=== PATIENT | female | born 1985 | race Caucasian/White ===

== ENCOUNTER 2022-06-25 01:00 | Emergency (ER) | payer OTHER ==
[2022-06-25 01:16] VITALS: BP 140/72; PULSE 89; BMI 19.3
[2022-06-25 02:30] LABS: BASO % 0.4 % (0-2.0); EOS % 0.1 % (0-4.5); HEMATOCRIT 31.3 % (32.4-45.2); HEMOGLOBIN 10.2 GM/dL (10.7-15.3); MCH 28.4 pg (25.7-33.7); MCHC 32.5 g/dl (32.0-36.0); MEAN CELL VOLUME 87.3 fl (80-96); MEAN PLT VOLUME 8.1 fl (7.5-11.1); MONO % 5.7 % (3.8-10.2); NEUT % 81.8 % (42.8-82.8); PLATELET COUNT 328 10^3/uL (134-434); RBC 3.59 M/mm3 (3.60-5.2); WHITE BLOOD COUNT 14.9 K/mm3 (4.0-10.0)
[2022-06-25] MEDS ORDERED: ACETAMINOPHEN 1000 MG/100 ML BAG IVPB ONE (02:58)
[2022-06-25] MEDS ORDERED: ACETAMINOPHEN INJECTION 100 ML IVPB ONE (03:00)
[2022-06-25 03:06] LABS: CALCIUM 8.9 mg/dL (8.5-10.1)
[2022-06-25 03:07] LABS: ALBUMIN 3.2 g/dl (3.4-5.0)
[2022-06-25 03:10] LABS: CREATININE 0.5 mg/dL (0.55-1.3)
[2022-06-25 03:11] LABS: BILIRUBIN,TOTAL 0.2 mg/dL (0.2-1); TOT PROT 7.2 g/dl (6.4-8.2)
[2022-06-25] MEDS ORDERED: VANCOMYCIN 1 GM in D5W (PRE-DOCKED) 1,000 MG/250 ML IVPB ONE (05:28)
[2022-06-25] MEDS ORDERED: AMPICILLIN NA/SULBACTAM NA 3 GM in SODIUM CHLORIDE 100 ML IVPB ONE (05:31)
[2022-06-25] MEDS ORDERED: VANCOMYCIN/WATER FOR INJ (PEG) 1,000 MG/200 ML BAG IVPB ONE (06:04)
[2022-06-25 13:30] VITALS: RESP 19; TEMP 98
== END 2022-06-25 12:15 | disposition short-term general hospital (02) ==
LOC: JER 01:00
PROC: 2W3QX1Z Immobilization of Right Lower Leg using Splint (ICD-10-PCS; principal; 2022-06-25)
PROC: 3E03329 Introduction of Other Anti-infective into Peripheral Vein, Percutaneous Approach (ICD-10-PCS; 2022-06-25)
PROC: 3E03329 Introduction of Other Anti-infective into Peripheral Vein, Percutaneous Approach (ICD-10-PCS; 2022-06-25)
PROC: 3E03329 Introduction of Other Anti-infective into Peripheral Vein, Percutaneous Approach (ICD-10-PCS; 2022-06-25)
DX: S82.64XA Nondisplaced fracture of lateral malleolus of right fibula, initial encounter for closed fracture (principal); K04.7 Periapical abscess without sinus; V03.10XA Pedestrian on foot injured in collision with car, pick-up truck or van in traffic accident, initial encounter
CPT/HCPCS: 0241U-QW; 36415; 70487-TC; 73590-TC-RT-FY; 73610-TC-RT-FY; 73630-TC-RT-FY; 80053; 85025; 87040; 99285-25; Q9967

== ENCOUNTER 2023-02-25 07:36 | Emergency (ER) | payer OTHER ==
[2023-02-25 07:48] VITALS: RESP 18; BMI 19.3
[2023-02-25] MEDS ORDERED: DOXYCYCLINE HYCLATE 100 MG CAPSULE PO ONE ×2 (08:52→09:45)
[2023-02-25] MEDS ORDERED: LORATADINE 10 MG TABLET PO ONE (08:55)
[2023-02-25] MEDS ORDERED: CEFTRIAXONE 500 MG in DEXTROSE 5%-WATER - 50 ML IVPB ONE (08:59)
[2023-02-25] MEDS ORDERED: LIDOCAINE HCL 1%, 10 MG/ML (20ML VIAL) ONE (09:14)
[2023-02-25 09:18] LABS: EPI CELLS 23 /uL (0-25.1); HYALINE CASTS 6 /uL (0-3.1); PH,URINE 7.5 (5.0-8.0); URINE APPEARANCE CLOUDY; URINE BACTERIA 237 /uL (0-1359); URINE BILIRUBIN NEGATIVE (NEGATIVE); URINE COLOR YELLOW; URINE GLUCOSE (UA) NEGATIVE (NEGATIVE); URINE KETONE NEGATIVE (NEGATIVE); URINE LEUK ESTERASE 2+ (NEGATIVE); URINE NITRITE NEGATIVE (NEGATIVE); URINE PROTEIN TRACE (NEGATIVE); URINE RBC 52 /uL (0-23.9); URINE WBC 576 /uL (0-25.8)
[2023-02-25 09:19] LABS: HCG,QUALITATIVE URINE Negative
[2023-02-25] MEDS ORDERED: LORATADINE 10 MG TABLET ONE (09:44)
[2023-02-25 10:05] VITALS: BP 108/64; PULSE 66; TEMP 97.9
== END 2023-02-25 10:08 | disposition home or self-care (01) ==
LOC: JER 07:36
DX: S90.862A Insect bite (nonvenomous), left foot, initial encounter (principal); A64 Unspecified sexually transmitted disease; W57.XXXA Bitten or stung by nonvenomous insect and other nonvenomous arthropods, initial encounter
CPT/HCPCS: 36415; 81003; 84703; 87086; 87491; 87591; 99284-25

== ENCOUNTER 2023-04-02 22:03 | Inpatient (IN) | payer OTHER ==
[2023-04-02 22:37] VITALS: BMI 21.3
[2023-04-02] MEDS ORDERED: hydrOXYzine PAMOATE 25 MG CAPSULE (FP) PO PRN (23:31)
[2023-04-02] MEDS ORDERED: IBUPROFEN 600 MG TABLET (FP) PO PRN (23:31)
[2023-04-02] MEDS ORDERED: ONDANSETRON *ODT* 4 MG TABLET SL PRN (23:31)
[2023-04-02] MEDS ORDERED: IBUPROFEN 400 MG TABLET (FP) PO PRN (23:31)
[2023-04-02] MEDS ORDERED: BENZOCAINE/MENTHOL (CHLORASEPTIC ) LOZENGE MM PRN (23:31)
[2023-04-02] MEDS ORDERED: P-EPHED 60MG/TRIPROLIDI 2.5MG TABLET PO PRN (23:31)
[2023-04-02] MEDS ORDERED: DICYCLOMINE HCL 10 MG CAPSULE PO PRN (23:31)
[2023-04-02] MEDS ORDERED: NALOXONE HCL (KLOXXADO) 8 MG SPRAY NS PRN (23:31)
[2023-04-02] MEDS ORDERED: NICOTINE POLACRILEX 2 MG GUM BUC PRN (23:31)
[2023-04-02] MEDS ORDERED: ACETAMINOPHEN 325 MG TABLET (FP) PO PRN (23:31)
[2023-04-02] MEDS ORDERED: NALOXONE HCL 0.4 MG/ML VIAL IM PRN (23:31)
[2023-04-02] MEDS ORDERED: MAG HYDROX/AL HYDROX/SIMETH 30 ML UNIT-DOSE CUP PO PRN (23:31)
[2023-04-02] MEDS ORDERED: MAGNESIUM HYDROX 2400MG/30ML ORAL SUSPENSION 30 ML CUP PO PRN (23:31)
[2023-04-02] MEDS ORDERED: BISMUTH SUBSALICYLATE 524 MG/30 ML PO PRN (23:31)
[2023-04-02] MEDS ORDERED: METHOCARBAMOL 500 MG TABLET PO PRN (23:31)
[2023-04-02] MEDS ORDERED: LOPERAMIDE HCL 2 MG CAPSULE PO PRN (23:31)
[2023-04-02] MEDS ORDERED: POLYETHYLENE GLYCOL (HEALTHYLAX) 3350 17 GM PACKET PO PRN (23:31)
[2023-04-02] MEDS ORDERED: guaiFENesin 600 MG TABLET.ER (FP) PO PRN (23:31)
[2023-04-02] MEDS ORDERED: BENZONATATE 200 MG CAPSULE PO PRN (23:31)
[2023-04-03] MEDS: PRENATAL VITAMINS W/ FOLIC ACID TABLET (FP) PO SCH (10:29)
[2023-04-03] MEDS: BACITRACIN 0.9 GM PACKET TP SCH ×2 (10:29→22:35)
[2023-04-03 11:24] LABS: HEMATOCRIT 35.4 % (32.4-45.2); HEMOGLOBIN 11.3 GM/dL (10.7-15.3); MCH 27.9 pg (25.7-33.7); MEAN CELL VOLUME 87.2 fl (80-96); MEAN PLT VOLUME 9.4 fl (7.5-11.1); PLATELET COUNT 217 10^3/uL (134-434); RBC 4.06 M/mm3 (3.60-5.2); RDW 16.3 % (11.6-15.6); WHITE BLOOD COUNT 8.2 K/mm3 (4.0-10.0)
[2023-04-03 12:29] LABS: POTASSIUM 4.1 mmol/L (3.5-5.1)
[2023-04-03 12:42] LABS: ALBUMIN 3.1 g/dl (3.4-5.0); BLOOD UREA NITROGEN 12.3 mg/dL (7-18); CREATININE 0.8 mg/dL (0.55-1.3)
[2023-04-03 12:43] LABS: TOT PROT 6.9 g/dl (6.4-8.2)
[2023-04-03 12:44] LABS: BILIRUBIN,TOTAL 0.3 mg/dL (0.2-1)
[2023-04-03 12:45] LABS: CALCIUM 8.7 mg/dL (8.5-10.1)
[2023-04-03 17:30] VITALS: RESP 16
[2023-04-03] MEDS ORDERED: THIAMINE HCL 100 MG TABLET (FP) PO SCH (22:00)
[2023-04-03] MEDS ORDERED: MELATONIN 5 MG TABLETS PO SCH (22:00)
[2023-04-04 09:23] VITALS: BP 107/66; PULSE 65; TEMP 97.7
[2023-04-04] MEDS: PRENATAL VITAMINS W/ FOLIC ACID TABLET (FP) PO SCH (10:40)
[2023-04-04] MEDS: BACITRACIN 0.9 GM PACKET TP SCH (10:40)
== END 2023-04-04 11:28 | disposition home or self-care (01) | DRG 773 ==
LOC: YASAS 22:03 → Y6N 23:42
PROVIDERS: ADMIT Allergy & Immunology; ATTEND Surgery
PROC: HZ2ZZZZ Detoxification Services for Substance Abuse Treatment (ICD-10-PCS; principal; 2023-04-02)
DX: F11.20 Opioid dependence, uncomplicated (principal); F14.20 Cocaine dependence, uncomplicated; F16.20 Hallucinogen dependence, uncomplicated; F17.210 Nicotine dependence, cigarettes, uncomplicated; M25.571 Pain in right ankle and joints of right foot; R26.89 Other abnormalities of gait and mobility; G89.29 Other chronic pain; Z28.310 Unvaccinated for COVID-19; Z28.9 Immunization not carried out for unspecified reason
CPT/HCPCS: 36415; 80053; 81025; 85027; 86780; 87635

== ENCOUNTER 2023-12-22 05:48 | Observation (INO) | payer OTHER ==
[2023-12-22 09:02] LABS: BASO % 0.3 % (0-2.0); EOS % 1.6 % (0-4.5); HEMATOCRIT 31.2 % (32.4-45.2); HEMOGLOBIN 10.5 GM/dL (10.7-15.3); LYMPH % 12.6 % (8-40); MCH 29.6 pg (25.7-33.7); MCHC 33.8 g/dl (32.0-36.0); MEAN CELL VOLUME 87.6 fl (80-96); MEAN PLT VOLUME 8.8 fl (7.5-11.1); MONO % 6.7 % (3.8-10.2); NEUT % 78.8 % (42.8-82.8); PLATELET COUNT 204 10^3/uL (134-434); RBC 3.56 M/mm3 (3.60-5.2); RDW 14.4 % (11.6-15.6); WHITE BLOOD COUNT 10.5 K/mm3 (4.0-10.0)
[2023-12-22 09:04] LABS: POTASSIUM 3.6 mmol/L (3.5-5.1)
[2023-12-22 09:05] LABS: CALCIUM 8.7 mg/dL (8.5-10.1)
[2023-12-22 09:06] LABS: ALBUMIN 3.2 g/dl (3.4-5.0)
[2023-12-22 09:09] LABS: CREATININE 0.5 mg/dL (0.55-1.3)
[2023-12-22 09:10] LABS: BILIRUBIN,TOTAL 0.6 mg/dL (0.2-1)
[2023-12-22 09:11] LABS: TOT PROT 6.7 g/dl (6.4-8.2)
[2023-12-22] MEDS: SODIUM CHLORIDE 0.9% 500 ML INFUS.BAG IV ONE (20:24)
[2023-12-23] MEDS: SODIUM CHLORIDE 1,000 ML IV STA (01:11)
[2023-12-23] MEDS ORDERED: VANCOMYCIN 1 GRAM (PRE-DOCKED) 1,000 MG/250 ML BAG IVPB ONE (01:57)
[2023-12-23] MEDS: VANCOMYCIN 1 GRAM (PRE-DOCKED) 1,000 MG/200 ML BAG IVPB ONE (02:11)
[2023-12-23 03:43] VITALS: BP 113/75; PULSE 47; RESP 18; TEMP 98.2; BMI 18.3
[2023-12-23] MEDS: LACTATED RINGERS SOLUTION 1,000 ML/1,000 ML INFUS.BAG IV SCH (03:58)
[2023-12-23] MEDS: VANCOMYCIN/WATER FOR INJ (PEG) 1,000 MG/250 ML BAG IVPB ONE (05:18)
[2023-12-23] MEDS: VANCOMYCIN 1 GRAM (PRE-DOCKED) 1,000 MG/250 ML BAG IVPB SCH (05:19)
[2023-12-23] MEDS ORDERED: SODIUM CHLORIDE 1,000 ML IV SCH (07:15)
[2023-12-23 08:00] LABS: HEMATOCRIT 33.7 % (32.4-45.2); HEMOGLOBIN 11.2 GM/dL (10.7-15.3); MCH 29.3 pg (25.7-33.7); MCHC 33.2 g/dl (32.0-36.0); MEAN CELL VOLUME 88.2 fl (80-96); MEAN PLT VOLUME 9.1 fl (7.5-11.1); PLATELET COUNT 210 10^3/uL (134-434); RBC 3.83 M/mm3 (3.60-5.2); RDW 14.7 % (11.6-15.6); WHITE BLOOD COUNT 7.6 K/mm3 (4.0-10.0)
[2023-12-23 08:15] LABS: CHLORIDE 109 mmol/L (98-107); POTASSIUM 3.9 mmol/L (3.5-5.1); SODIUM 139 mmol/L (136-145)
[2023-12-23 08:18] LABS: ANION GAP 4 mmol/L (4-13); CALCIUM 8.7 mg/dL (8.5-10.1); CO2 26 mmol/L (21-32); GLUCOSE,RANDOM 107 mg/dL (74-106); MAGNESIUM 2.1 mg/dL (1.8-2.4)
[2023-12-23 08:19] LABS: BLOOD UREA NITROGEN 8.5 mg/dL (7-18)
[2023-12-23 08:22] LABS: CREATININE 0.5 mg/dL (0.55-1.3); PHOSPHOROUS 2.7 mg/dL (2.5-4.9)
[2023-12-23] MEDS: ENOXAPARIN NA (PORCINE) 40 MG/0.4 ML DISP.SYRIN SQ SCH (11:04)
[2023-12-23 11:40] LABS: HIV INTERPRETATION NEGATIVE (NEGATIVE)
[2023-12-23] MEDS ORDERED: LORazepam 1 MG TABLET PO PRN (12:42)
[2023-12-24] MEDS ORDERED: VANCOMYCIN 1,000 MG in DEXTROSE 5%-WATER - 250 ML IVPB SCH (01:30)
== END 2023-12-23 12:56 | disposition home or self-care (01) ==
LOC: JER 05:48 → JERBED 20:07 → J7W 12-23 03:03
PROVIDERS: ADMIT Internal Medicine; ATTEND Internal Medicine
PROC: 3E0337Z Introduction of Electrolytic and Water Balance Substance into Peripheral Vein, Percutaneous Approach (ICD-10-PCS; principal; 2023-12-22)
PROC: 3E03329 Introduction of Other Anti-infective into Peripheral Vein, Percutaneous Approach (ICD-10-PCS; 2023-12-22)
PROC: 3E023GC Introduction of Other Therapeutic Substance into Muscle, Percutaneous Approach (ICD-10-PCS; 2023-12-22)
DX: L03.90 Cellulitis, unspecified (principal); M79.89 Other specified soft tissue disorders; F11.20 Opioid dependence, uncomplicated; F19.10 Other psychoactive substance abuse, uncomplicated; R41.82 Altered mental status, unspecified; Z59.00 Homelessness unspecified; M79.671 Pain in right foot; Z72.89 Other problems related to lifestyle; R26.2 Difficulty in walking, not elsewhere classified; F17.210 Nicotine dependence, cigarettes, uncomplicated; Z86.19 Personal history of other infectious and parasitic diseases
CPT/HCPCS: 36415; 70450-TC; 71045-TC-FY; 73610-TC-RT-FY; 73630-TC-RT-FY; 73700-TC-RT; 80048; 80053; 80307; 83735; 84100; 84703; 85025; 85027; 86780; 87040; 87077; 87081; 87389; 93005; 93010; 93971-TC; 96361; 96365; 96367; 96372; 99285-25; G0378

== ENCOUNTER 2024-04-02 04:07 | Emergency (ER) | payer OTHER ==
[2024-04-02 04:16] VITALS: BMI 21.8
[2024-04-02 09:03] VITALS: RESP 18
[2024-04-02 11:09] VITALS: BP 129/83; PULSE 86; TEMP 98.4
== END 2024-04-02 11:39 | disposition home or self-care (01) ==
LOC: JER 04:07
DX: F19.920 Other psychoactive substance use, unspecified with intoxication, uncomplicated (principal); R41.82 Altered mental status, unspecified; R61 Generalized hyperhidrosis
CPT/HCPCS: 99282-25

== ENCOUNTER 2024-04-02 12:21 | Inpatient (IN) | payer OTHER ==
[2024-04-02 12:59] VITALS: BMI 18.3
[2024-04-02] MEDS ORDERED: NICOTINE POLACRILEX 2 MG LOZENGE BC PRN (14:17)
[2024-04-02] MEDS ORDERED: BISMUTH SUBSALICYLATE 262 MG/15 ML BTL PO PRN (14:17)
[2024-04-02] MEDS ORDERED: BENZOCAINE/MENTHOL (CHLORASEPTIC ) LOZENGE MM PRN (14:17)
[2024-04-02] MEDS ORDERED: P-EPHED 60MG/TRIPROLIDI 2.5MG TABLET PO PRN (14:17)
[2024-04-02] MEDS ORDERED: DICYCLOMINE HCL 10 MG CAPSULE PO PRN (14:17)
[2024-04-02] MEDS ORDERED: guaiFENesin 600 MG TABLET.ER (FP) PO PRN (14:17)
[2024-04-02] MEDS ORDERED: BENZONATATE 200 MG CAPSULE PO PRN (14:17)
[2024-04-02] MEDS ORDERED: IBUPROFEN 400 MG TABLET (FP) PO PRN (14:17)
[2024-04-02] MEDS ORDERED: LOPERAMIDE HCL 2 MG CAPSULE PO PRN (14:17)
[2024-04-02] MEDS ORDERED: POLYETHYLENE GLYCOL (HEALTHYLAX) 3350 17 GM PACKET PO PRN (14:17)
[2024-04-02] MEDS ORDERED: NALOXONE (NYS OPIOID OVERDOSE PROGRAM) 4 MG/0.1 ML SPRAY NS PRN (14:17)
[2024-04-02] MEDS ORDERED: MAGNESIUM HYDROX 2400MG/30ML ORAL SUSPENSION 30 ML CUP PO PRN (14:17)
[2024-04-02] MEDS ORDERED: IBUPROFEN 600 MG TABLET (FP) PO PRN (14:17)
[2024-04-02] MEDS ORDERED: ONDANSETRON *ODT* 4 MG TABLET SL PRN (14:17)
[2024-04-02] MEDS ORDERED: ACETAMINOPHEN 325 MG TABLET (FP) PO PRN (14:17)
[2024-04-02] MEDS ORDERED: hydrOXYzine PAMOATE 25 MG CAPSULE (FP) PO PRN (14:17)
[2024-04-02] MEDS ORDERED: NICOTINE POLACRILEX 2 MG GUM BUC PRN (14:17)
[2024-04-02] MEDS ORDERED: NALOXONE (NARCAN) HCL 4 MG/0.1 ML SPRAY NS PRN (14:17)
[2024-04-02] MEDS ORDERED: MAG HYDROX/AL HYDROX/SIMETH 30 ML UNIT-DOSE CUP PO PRN (14:17)
[2024-04-02] MEDS: MELATONIN 5 MG TABLETS PO SCH (22:24)
[2024-04-02] MEDS: THIAMINE 100 MG TABLET PO SCH (22:24)
[2024-04-03 07:26] VITALS: RESP 17
[2024-04-03] MEDS ORDERED: cloNIDine HCL 0.1 MG TABLET PO PRN (09:11)
[2024-04-03 09:25] VITALS: BP 126/75; PULSE 85; TEMP 98.2
[2024-04-03] MEDS: methaDONE HCL 10 MG TABLET (FOR DETOX USE ONLY) PO ONE (09:42)
[2024-04-03] MEDS: PRENATAL VITAMINS W/ FOLIC ACID TABLET (FP) PO SCH (09:43)
[2024-04-03] MEDS: METHOCARBAMOL 500 MG TABLET PO PRN (09:43)
[2024-04-05] MEDS ORDERED: methaDONE HCL 10 MG TABLET (FOR DETOX USE ONLY) PO ONE (10:00)
[2024-04-07] MEDS ORDERED: methaDONE HCL 10 MG TABLET (FOR DETOX USE ONLY) PO ONE (10:00)
== END 2024-04-03 12:27 | disposition left against medical advice (07) | DRG 770 ==
LOC: YASAS 12:21 → Y6N 14:39
PROVIDERS: ADMIT Allergy & Immunology; ATTEND Surgery
PROC: HZ2ZZZZ Detoxification Services for Substance Abuse Treatment (ICD-10-PCS; principal; 2024-04-02)
DX: F11.23 Opioid dependence with withdrawal (principal); F14.10 Cocaine abuse, uncomplicated; F17.210 Nicotine dependence, cigarettes, uncomplicated
CPT/HCPCS: 80305; 80307